=== PATIENT | female | born 1935 ===

== ENCOUNTER 2018-05-18 00:31 | Inpatient (IN) | payer MEDICARE, OTHER ==
[2018-05-17 14:22] LABS: INR 1.02
[~2018-05-18] VITALS: Ht 167.6 cm; Wt 98.9 kg
[2018-05-18] VITALS (19 sets, daily range): BP systolic 100–215; BP diastolic 42–99
[~2018-05-18 00:31] MED LIST: ALI300PT PO; ASPI81TA94 PO; CHLOR25 PO; FLUO-201 PO; GABA-583 PO; LOSA50TA72 PO; MEXI150C15 PO; OLME40TA28 PO
--- NOTE | 2018-05-18 04:17 | HISTORY AND PHYSICAL ---
DATE OF ADMISSION: May 18, 2018 IDENTIFICATION, CHIEF COMPLAINT Elisabeth is an 82-year-old woman with a chief complaint of right knee pain. HISTORY OF PRESENT ILLNESS Patient has a longstanding history of knee arthritis, progressively painful and debilitating, refractory to conservative care. Surgery is indicated to relieve symptoms after failure of nonoperative measures. PAST MEDICAL HISTORY Notable for hypertension controlled on medication, sleep apnea using CPAP, borderline diabetes. PAST SURGICAL HISTORY Notable for hysterectomy, contralateral knee replacement, arthroscopic surgery of the knee. ALLERGIES None. CURRENT MEDICATIONS 1. Benicar 40 mg p.o. q.day. 2. Gralise 2400 mg q.day. 3. Prozac 10 mg q.day. FAMILY HISTORY Notable for father and daughter who have cancer. SOCIAL HISTORY Notable for smoking a pack of cigarettes a year for ten years, quitting in 1974. She denies alcohol use or abuse. REVIEW OF SYSTEMS: Noncontributory. PHYSICAL EXAMINATION GENERAL: This is a healthy female. She appears stated age. HEENT: Normocephalic, atraumatic. NECK: Supple. LUNGS: Clear. HEART: Regular. ABDOMEN: Soft. ORTHOPEDIC EXAM: The right knee is stable. An effusion is present. She has crepitus noted. She is stiff at the end range. Extensor function is intact. RADIOGRAPHIC DATA Radiographs demonstrate end-stage DJD. ASSESSMENT Right knee degenerative joint disease, progressively painful and debilitating, refractory to conservative care. PLAN Per patient request, will proceed with total knee arthroplasty. Nature of the procedure, risks, benefits, the anticipated rehab course were reviewed. Risks include, but are not limited to, , major medical or anesthetic complication , infection, neurovascular injury, blood transfusion, stiffness, scarring, fracture, tendon rupture, instability, implant loosening, migration or failure, persistent or recurrent pain, need for additional surgery, and other unforeseen. She understands and wishes to proceed. Signed permit was placed in the chart, no guarantees are given or implied. TANG
[2018-05-18] MEDS ORDERED: OLMESARTAN 20 MG TAB PO ONE (06:35)
[2018-05-18] MEDS ORDERED: ALBUTEROL/IPRATROPIUM 3 ML NEB ONE (07:04)
[2018-05-18] MEDS ORDERED: PROPOFOL EMUL(*) 10MG/ML 20 ML 20 ML ONE (07:04)
[2018-05-18] MEDS ORDERED: ONDANSETRON 4 MG/2 ML VIAL ONE (07:25)
[2018-05-18] MEDS ORDERED: DEXAMETHASONE SOD PHOS 10MG/ML ONE (07:25)
[2018-05-18] MEDS ORDERED: LACTATED RINGER 3000 ML BAG IR ONE (08:33)
[2018-05-18] MEDS ORDERED: ACETAMINOPHEN 325 MG TAB PO PRN (09:45)
[2018-05-18] MEDS ORDERED: PROMETHAZINE 25 MG/ML 1 ML AMP IVP PRN (09:45)
[2018-05-18] MEDS ORDERED: BENZOCAINE/MENTHOL 1 EACH LOZG PO PRN (09:45)
[2018-05-18] MEDS ORDERED: NORMOSOL R SOLN(*) 1000 ML BAG 1,000 ML IV PRN ×2 (09:45→12:15)
[2018-05-18] MEDS ORDERED: BISACODYL 10 MG SUPP PR PRN (09:45)
[2018-05-18] MEDS ORDERED: ZOLPIDEM TARTRATE 5 MG TAB PO PRN (09:45)
[2018-05-18] MEDS ORDERED: FLUSH 10 ML SYR IVP PRN (09:45)
[2018-05-18] MEDS ORDERED: diphenhydrAMINE 25 MG CAP PO PRN (09:45)
[2018-05-18] MEDS ORDERED: diphenhydrAMINE 50 MG/ML VIAL IVP PRN (09:45)
--- NOTE | 2018-05-18 09:54 | RADIOLOGY IMAGING REPORT ---
FACILITY: [facility] PATIENT NAME: Elisabeth Michelle : 1935 MR: [id number] V: [id number] EXAM DATE: ORDERING PHYSICIAN: MINOR FLORES TECHNOLOGIST: Location: [facility] Patient: Elisabeth Michelle : 1935 Visit/Account:[id number] Date of Sevice: 05/18/2018 Exam type: KNEE LIMITED RIGHT History: Right TKA Comparison: June 03, 2017. Findings: Two views the right knee demonstrate a right knee arthroplasty in good anatomic alignment. Soft tiss ue gas and skin selwyn project over the anterior aspect of this postoperative knee IMPRESSION: 1. As above Report Dictated By: Ariana Dickey MD at 05/18/2018 9:49 AM Report E-Signed By: Ariana Dickey MD at 05/18/2018 9:50 AM WSN:[id number]
[2018-05-18] MEDS: APAP/HYDROCODONE 325/7.5 TAB PO PRN ×3 (11:10→19:31)
--- NOTE | 2018-05-18 11:38 | OPERATIVE REPORT 1 ---
EVENT DATE: May 18, 2018 SURGEON: Mac Mccullough MD ANESTHESIOLOGIST: Nicho Valdovinos MD ANESTHESIA: General plus spinal. GUSSET STITCHER: AMANDA Castle PREOPERATIVE DIAGNOSIS Right knee degenerative joint disease. POSTOPERATIVE DIAGNOSIS Right knee degenerative joint disease. PROCEDURE PERFORMED Right total knee arthroplasty. ESTIMATED BLOOD LOSS Minimal. DRAINS None. SPECIMENS None. COMPLICATIONS No apparent. TOURNIQUET TIME 43 minutes. IMPLANTS USED FIGS Triathlon Knee System with 4 right PS femur, 4 standard tibial base plate, 9 mm 33 diameter symmetric polyethylene patella and a 9 mm PS tibial tray liner. Polyethylene is X3. INDICATIONS Elisabeth is an 82-year-old woman with intractable pain and disability related to end-stage knee arthritis. Surgery is indicated to relieve symptoms after failure of nonoperative measures. DESCRIPTION OF PROCEDURE Patient is taken to the operating room, placed supine on the operating table. Spinal block is administered by the anesthesiologist, general anesthesia induced. Antibiotics and TXA are administered IV. Right lower extremity is prepped and draped in usual sterile fashion for knee arthroplasty. Limb is exsanguinated with an Esmarch bandage, tourniquet inflated to 300 mmHg. Midline longitudinal incision is made, carried down through the skin and subcutaneous tissue to the extensor mechanism. Full thickness flap is developed far enough medially to allow medial parapatellar arthrotomy to be performed. Patella is everted. Knee is brought into flexed position. Fat pad , anterior horns of the menisci and the cruciate ligaments are debrided. Subperiosteal medial release is initiated in titrated fashion to start to balance the knee. Step-drill is used to enter the distal femur. A 10 inch long alignment guide is used to engage the isthmus. Cut is set for 6 degrees valgus relative to the anatomic axis. A resection block is applied and pinned, cuts made with an oscillating saw. AP sizing guide is applied to the distal femoral cut, positioned for 3 degrees of external rotation relative to the posterior condyles. Size 4 is optimal without risk of notching. 4-in-1 cutting block is applied. Anterior, posterior, posterior chamfer and anterior chamfer cuts are made respectively. PS box applied, centered, medial and lateral bone is removed from the box. Trial femur has nice line to line fit. Attention is turned to tibial preparation. Extramedullary guide is applied, positioned for varus, valgus, posterior slope and rotation. This is set to resect 9 mm from the relatively intact lateral tibial plateau. Due to some wear in the compartment, this cut is elevated a bit to avoid an excessive cut. Block is pinned. Extramedullary alignment check is made. Cuts are made with an oscillating saw. A bit of posterior osteophytes are removed, and after removing the osteophytes, gaps are balanced and symmetric after a bit of additional medial release. The 4 tibial base plate provides good coverage without soft tissue overhang. This is inserted along with a trial liner, trial femur. Knee is brought to extension. Patella is taken from a starting thickness of 23 to a residual of 14 with a patellar clamp and oscillating saw. 33 provides optimum bony coverage without soft tissue overhang. Lug holes are drilled. Patella tracks nicely with a no touch technique. Final tibial preparation consists of ensuring appropriate rotational and translational position of the component. Box is reamed. Fin is punched. Surfaces are copiously lavaged. Pain cocktail is infiltrated throughout the wound. A mix of methacrylate is made, and the components are cemented in a single stage. When the cement is fully polymerized, tourniquet is deflated. Hemostasis is ensured. Wound is copiously lavaged to remove all loose debris. The 9 PS tibial tray liner fills up the gap ideally. This is inserted after cleaning and drying the base plate, locked into position. Joint is reduced. Arthrotomy is closed in flexion with #2 Ethibond, subcu with 3-0 Vicryl, skin with surgical selwyn. Xeroform is applied followed by a dry sterile dressing, compression wrap. Patient awakened from anesthesia and taken to recovery room in stable condition, having tolerated procedure well. Plan is for standard TK rehab protocol. [facility]
--- NOTE | 2018-05-18 11:41 | Hospitalist Consultation ---
History of Present Illness Requesting Physician Dr. Mccullough Reason for Consult Medical Management Chief Complaint s/p right total knee replacement History of Present Illness She was admitted s/p right total knee replacement. It is reported the surgery went well and without complication. History Problems: (1) Hypertension Status: Chronic (2) Depression Status: Chronic (3) Type 2 diabetes mellitus Status: Chronic (4) JORGE (obstructive sleep apnea) Status: Chronic (5) Neuropathic pain Status: Chronic Home Meds Reported Medications Aspirin (ASPIRIN) 81 Mg Tab.chew, 81 MG PO QDAY, TAB.CHEW 05/13/18 Mexiletine Hcl (MEXILETINE HCL) 150 Mg Capsule, 150 MG PO DAILY, CAPSULE 05/13/18 Chlorthalidone (CHLORTHALIDONE) 25 Mg Tab, 25 MG PO DAILY, TAB 05/13/18 Fluoxetine Hcl (PROZAC) 10 Mg Capsule, 10 MG PO QDAY, CAPSULE 05/13/18 Aliskiren (TEKTURNA) 300 Mg Tab, 300 MG PO DAILY, TAB 05/13/18 Gabapentin (GRALISE) 600 Mg Tab.er.24h, 2400 MG PO QDAY 05/13/18 Olmesartan Medoxomil (BENICAR) 40 Mg Tablet, 40 MG PO DAILY 05/13/18 Discontinued Reported Medications Losartan Potassium (LOSARTAN POTASSIUM) 50 Mg Tablet, 50 MG PO QDAY 05/13/18 Allergies: Coded Allergies: nifedipine (Verified Allergy, Intermediate, BURNING PAIN SENSATION IN FEET , 05/13/18) Patient History: FH: HTN (hypertension) FATHER, FH: alcoholism FATHER, FH: colon cancer MOTHER, Hx Smoking: Yes (40YRS AGO 1PPD X 15) Smoking Status: Former Smoker Caffeine Intake: Coffee Caffeine/Cups Per Day: 2 CUPS DAILY Hx Alcohol Use: Yes Hx Substance Use Disorder: No Social Drug Use: Never History of IV Drug Use: No Review of Systems All Systems Reviewed/Normal: Yes, Except as Noted Exam Vital Signs Vital Signs Date Time Temp Pulse Resp B/P (MAP) Pulse Ox O2 Delivery O2 Flow Rate FiO2 05/18/18 11:17 93 Nasal Cannula 1.0 05/18/18 10:46 97.4 16 165/77 (106) 05/18/18 10:45 68 General Appearance: Alert, Awake, No Acute Distress, Afebrile Neuro: No Gross deficits Cardiovascular: Regular Rate and Rhythm Respiratory: No Respiratory Distress, Clear to Auscultation GI: Abd Soft and Non-Tender Extremities: No Edema Psych: Alert & Oriented X3, Appropriate Mood & Affect Assessment and Plan Problems: (1) Status post total right knee replacement Status: Acute Assessment & Plan: Followed by Dr. Mccullough. She will be placed on Aspirin 325mg daily for 30 days for DVT prophylaxis. She has no history of DVT or PE. (2) Hypertension Status: Chronic Assessment & Plan: She is on chronic treatment with Benicar, Tekturna, and Chlorthalidone. These medications have been started with hold parameters. (3) Neuropathic pain Status: Chronic Assessment & Plan: She is on chronic treatment with Gabapentin and Mexiletine. (4) Type 2 diabetes mellitus Status: Chronic Assessment & Plan: Pre-diabetic. Diet controlled at this time. (5) Depression Status: Chronic Assessment & Plan: She is on chronic treatment with Fluoxetine. (6) JORGE (obstructive sleep apnea) Status: Chronic Assessment & Plan: She does use CPAP at home. She did bring her machine to use during admission. Venous Thromboembolism Antithrombotics Is Pt On Any Antithrombotics?: No KIRBY IVORY [facility] May 18, 2018 11:41
[2018-05-18] MEDS ORDERED: TRANEXAMIC AC 1000 MG/10ML SDV 1,000 MG in DEXTROSE 5% 50 ML BAG 50 ML IV ONE (12:15)
[2018-05-18] MEDS ORDERED: FAMOTIDINE 20 MG TAB PO ONE (12:15)
[2018-05-18] MEDS ORDERED: LIDOCAINE/SOD BICARB 8.4% SYR ID ONE (12:15)
[2018-05-18] MEDS ORDERED: PREGABALIN 75 MG CAPSULE PO ONE (12:15)
[2018-05-18] MEDS ORDERED: cloNIDine EPIDUR INJ 100MCG/ML 40 MCG, ROPIVACAINE 0.5% 20 ML VIAL 25 ML, EPINEPHrine H... INJ ONE (12:15)
[2018-05-18] MEDS ORDERED: CELECOXIB 200 MG CAP PO ONE (12:15)
[2018-05-18] MEDS ORDERED: MIDAZOLAM 2 MG/2 ML VIAL IVP PRN (12:15)
[2018-05-18] MEDS ORDERED: ceFAZolin(*) 2GM/D5W 50ML 50 ML IVPB ONE (12:15)
[2018-05-18] MEDS ORDERED: ACETAMINOPHEN 500 MG TAB PO ONE (12:15)
[2018-05-18] MEDS: MAGNESIUM HYDROXIDE* 30ML UDCP PO PRN (13:10)
[2018-05-18] MEDS: ceFAZolin(*) 1 GM VIAL 1 GM in NS(*) 0.9% 100 ML ADDVANT BAG 100 ML IVPB SCH ×2 (15:31→23:33)
[2018-05-18] MEDS: CELECOXIB 200 MG CAP PO SCH (18:02)
[2018-05-18] MEDS: POLYETHYLENE GLYCOL 17 GM PKT PO SCH (19:47)
[2018-05-18] MEDS: FLUoxetine HCL 10 MG CAP PO SCH (20:26)
[2018-05-18] MEDS: GABAPENTIN 600 MG TABLET PO SCH (20:27)
[2018-05-18] MEDS: ALISKIREN 300 MG PO SCH (20:31)
[2018-05-19] MEDS: APAP/HYDROCODONE 325/7.5 TAB PO PRN ×4 (01:41→22:34)
[2018-05-19 02:19] VITALS: BP 178/84
[2018-05-19] MEDS: DIAZEPAM 5 MG TAB PO PRN ×3 (02:25→18:01)
--- NOTE | 2018-05-19 06:18 | Hospitalist Progress Note ---
Subjective Progress Notes Subjective She reports doing well. No CP/SOB/nausea. Physical Exam Vital Signs Date Time Temp Pulse Resp B/P (MAP) Pulse Ox O2 Delivery O2 Flow Rate FiO2 05/19/18 02:19 97.8 20 178/84 (115) 87 CPAP 1.0 05/18/18 23:36 85 General Appearance: Alert, Awake Cardiovascular: Regular Rate and Rhythm Respiratory: Clear to Auscultation Assessment and Plan Problems: (1) Status post total right knee replacement Status: Acute Assessment & Plan: She is on Aspirin 325mg daily for 30 days for DVT prophylaxis. She has no history of DVT or PE. (2) Hypertension Status: Chronic Assessment & Plan: Monitor BPs. Will resume treatment with Benicar, Tekturna, and Chlorthalidone as needed. (3) Neuropathic pain Status: Chronic Assessment & Plan: She is on chronic treatment with Gabapentin and Mexiletine. (4) Type 2 diabetes mellitus Status: Chronic Assessment & Plan: Diet controlled at this time. Monitor glucoses. (5) Depression Status: Chronic Assessment & Plan: She is on chronic treatment with Fluoxetine. (6) JORGE (obstructive sleep apnea) Status: Chronic Assessment & Plan: She will continue CPAP with her machine. Exam Sepsis Risk: No Definite Risk MICHAEL GOMEZ MD May 19, 2018 06:18
[2018-05-19] MEDS: CELECOXIB 200 MG CAP PO SCH ×2 (07:25→16:36)
[2018-05-19] MEDS: ceFAZolin(*) 1 GM VIAL 1 GM in NS(*) 0.9% 100 ML ADDVANT BAG 100 ML IVPB SCH (07:26)
[2018-05-19 07:32] VITALS: BP 179/84
[2018-05-19] MEDS ORDERED: MEXILETINE HCL 150 MG CAP PO SCH (09:00)
[2018-05-19] MEDS: ASPIRIN 325 MG TAB PO SCH (09:30)
[2018-05-19] MEDS: POLYETHYLENE GLYCOL 17 GM PKT PO SCH (09:30)
[2018-05-19] MEDS: CHLORTHALIDONE 25 MG TAB PO SCH (09:30)
[2018-05-19] MEDS: OLMESARTAN 20 MG TAB PO SCH (09:30)
[2018-05-19 10:41] VITALS: Ht 167.6 cm; Wt 98.9 kg
[2018-05-19 12:04] VITALS: BP 153/73
[2018-05-19] MEDS: INSULIN HUM LISPRO 100 UN/ML 3 ML VIAL SUBQ PRN ×2 (12:32→21:29)
[2018-05-19 16:35] VITALS: BP 158/67
[2018-05-19] MEDS: MAGNESIUM HYDROXIDE* 30ML UDCP PO PRN (19:42)
[2018-05-19 20:45] VITALS: BP 157/70
[2018-05-19] MEDS: ALISKIREN 300 MG PO SCH (21:27)
[2018-05-19] MEDS: FLUoxetine HCL 10 MG CAP PO SCH (21:28)
[2018-05-19] MEDS: GABAPENTIN 600 MG TABLET PO SCH (21:29)
[2018-05-19] MEDS: MEXILETINE HCL 150 MG CAP PO SCH (22:33)
[2018-05-19 22:35] VITALS: BP 140/78
[2018-05-20 02:22] VITALS: BP 140/70
[2018-05-20] MEDS: DIAZEPAM 5 MG TAB PO PRN ×2 (02:30→09:43)
[2018-05-20 07:13] VITALS: BP 128/60
[2018-05-20] MEDS: CELECOXIB 200 MG CAP PO SCH (07:23)
[2018-05-20] MEDS: CHLORTHALIDONE 25 MG TAB PO SCH (08:32)
[2018-05-20] MEDS: ASPIRIN 325 MG TAB PO SCH (08:32)
[2018-05-20] MEDS: OLMESARTAN 20 MG TAB PO SCH (08:32)
[2018-05-20] MEDS: MEXILETINE HCL 150 MG CAP PO SCH (08:33)
[2018-05-20] MEDS: POLYETHYLENE GLYCOL 17 GM PKT PO SCH (08:33)
[2018-05-20] MEDS ORDERED: HYDR-4308 PO (09:04)
[2018-05-20] MEDS ORDERED: ASPI-757 PO (09:24)
--- NOTE | 2018-05-20 09:28 | Hospitalist Progress Note ---
Subjective Progress Notes Subjective No cp/sob. No concerns from patient or staff. Physical Exam Vital Signs Date Time Temp Pulse Resp B/P (MAP) Pulse Ox O2 Delivery O2 Flow Rate FiO2 05/20/18 07:30 93 Nasal Cannula 2.5 05/20/18 07:13 97.8 67 20 128/60 (82) General Appearance: Alert, Awake, No Acute Distress Assessment and Plan Problems: (1) Status post total right knee replacement Status: Acute Assessment & Plan: She is on Aspirin 325mg daily for 30 days for DVT prophylaxis. She has no history of DVT or PE. (2) Hypertension Status: Chronic Assessment & Plan: Resume treatment with Benicar, Tekturna, and Chlorthalidone. (3) Neuropathic pain Status: Chronic Assessment & Plan: She is on chronic treatment with Gabapentin and Mexiletine. (4) Type 2 diabetes mellitus Status: Chronic Assessment & Plan: Diet controlled at this time. Glucose 127-166 in the last 24 hours. (5) Depression Status: Chronic Assessment & Plan: She is on chronic treatment with Fluoxetine. (6) JORGE (obstructive sleep apnea) Status: Chronic Assessment & Plan: She will continue CPAP with her machine. Exam Sepsis Risk: No Definite Risk EMELY ABURTO MD May 20, 2018 09:28
[2018-05-20] MEDS: APAP/HYDROCODONE 325/7.5 TAB PO PRN (11:05)
== END 2018-05-20 11:30 | disposition home health service (06) | DRG 470 ==
LOC: OR 00:31 → MED 10:45
PROVIDERS: ADMIT Orthopaedic Surgery; ATTEND Orthopaedic Surgery
PROC: 5A09357 Assistance with Respiratory Ventilation, Less than 24 Consecutive Hours, Continuous Positive Airway Pressure (ICD-10-PCS; 2018-05-18)
PROC: 0SRC0J9 Replacement of Right Knee Joint with Synthetic Substitute, Cemented, Open Approach (ICD-10-PCS; principal; 2018-05-18 07:15)
DX: M17.11 Unilateral primary osteoarthritis, right knee (principal); I10 Essential (primary) hypertension; E11.9 Type 2 diabetes mellitus without complications; G47.33 Obstructive sleep apnea (adult) (pediatric); Z96.652 Presence of left artificial knee joint; M79.2 Neuralgia and neuritis, unspecified; F32.9 Major depressive disorder, single episode, unspecified; Z99.81 Dependence on supplemental oxygen; Z90.710 Acquired absence of both cervix and uterus; Z87.891 Personal history of nicotine dependence; Z88.8 Allergy status to other drugs, medicaments and biological substances
CPT/HCPCS: 36415; 36416; 82948; 85610; 86850; 86900; 86901; 94640; 97162; C1713; C1776; J0171; J0690; J0735; J1100; J1885; J2250; J2405; J2704; J2795; J7050; J7060